=== PATIENT | male | born 1980 | race Caucasian/White ===

== ENCOUNTER 2018-01-15 21:55 | Emergency (ER) | payer SELFPAY ==
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
[2018-01-15 22:09] VITALS: BP 127/77; PULSE 79; RESP 18; TEMP 36.8; O2SAT 98; BMI 26.6
[2018-01-15 23:50] LABS: Add Manual Diff / Slide Review NO; Basophils Percent Auto 0.4 % (0-2); Eosinophils Percent Auto 4.8 % (2-4); Hematocrit 45.7 % (41-53); Hemoglobin 15.7 g/dL (13.5-17.5); Lymphocytes Percent Auto 22.7 % (25-40); Mean Corpuscular HGB Conc 34.3 % (30-36); Mean Corpuscular Hemoglobin 30.2 PG (26-34); Mean Corpuscular Volume 88.2 fL (80-100); Monocytes Percent Auto 9.1 % (3-14); Neutrophils Absolute Auto 4800 /uL (3000-5900); Platelet Count 228 X10^3/uL (150-400); Red Blood Cell Count 5.18 X10^6/uL (4.5-5.9); Red Cell Distribution Width 13.1 % (11.6-14.8); White Blood Cell Count 7.6 X10^3/uL (4.5-11.0)
[2018-01-16 00:02] LABS: Calcium 8.6 mg/dL (8.4-10.2); Estimated Glomerular Filt Rate > 60.0 mL/min (>60); Glucose 99 mg/dL (70-100); HEMOLYSIS 19 (0-50); Potassium 3.7 mmol/L (3.4-5.1); Sodium 138 mmol/L (137-145)
[2018-01-16 00:20] VITALS: BP 126/63; PULSE 65; RESP 16; O2SAT 100
[2018-01-16 02:21] VITALS: BP 120/61; PULSE 66; RESP 16; O2SAT 99
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
--- NOTE | 2018-01-16 03:14 | PC.NURSE ---
ASPEN COLLAR APPLIED TO PT PER PROVIDER. PT TOLERATED COLLAR. PROVIDER REQUESTING PT TO GO HOME ON ASPEN COLLAR UNTIL FOLLOW UP WITH PCP. PT UNDERSTANDS INSTRUCTIONS.
[2018-01-16 03:16] VITALS: BP 116/59; PULSE 86; RESP 20; TEMP 36.9; O2SAT 97
== END 2018-01-16 03:18 | disposition home or self-care (01) ==
PROVIDERS: Emergency Provider Emergency Medicine
DX: M54.2 Cervicalgia (principal); V49.9XXA Car occupant (driver) (passenger) injured in unspecified traffic accident, initial encounter
CPT/HCPCS: 36591; 70450; 71260; 72125; 74177; 80048; 85025; 99283; 99284; Q9967

== ENCOUNTER 2020-03-26 18:57 | Emergency (ER) | payer SELFPAY ==
--- NOTE | 2020-03-26 19:22 | DI.RAD.S_ITS ---
PROCEDURE: XR FINGER LT MIN 2V INDICATIONS: smashed finger with hammer, 3rd digit. TECHNIQUE: AP hand, 2 views of the 3rd digit acquired. COMPARISON: None. FINDINGS: Bones: There is a comminuted fracture of the 3rd distal phalanx primarily involving the tuft. No evidence of articular extension. No dislocations. Soft tissues: There is soft tissue swelling of the 3rd digit distally with a soft tissue laceration dorsally and suspected disruption of the nail bed. No suspicious soft tissue calcifications. IMPRESSION: 1. Comminuted fracture of the 3rd distal phalanx. 2. Suspected disruption of the nail bed suggestive of an open fracture. Dictated by: Adriel Luna M.D. on 03/26/2020 at 19:41 Approved by: Adriel Luna M.D. on 03/26/2020 at 19:43
[2020-03-26 19:24] VITALS: BP 137/70; PULSE 76; RESP 16; TEMP 36.9; O2SAT 99; BMI 24.9
[2020-03-26 20:45] VITALS: BP 146/78; PULSE 81; RESP 16; O2SAT 98
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
[2020-03-26] MEDS: IBUPROFEN 400 MG TABLET PO (21:24)
[2020-03-26] MEDS: OXYCODONE/ACETAMINOPHEN 5/325 TABLET 1 TAB PO (21:24)
[2020-03-26] MEDS: LIDO 1%/SOD BICARB 8.4% (10ML) 10 ML SYRINGE INJ (21:24)
[2020-03-26] MEDS: cephALEXin 250 MG CAPSULE 500 MG PO (21:24)
[2020-03-26 21:55] VITALS: BP 130/73; PULSE 76; RESP 20; O2SAT 98
[2020-03-26] MEDS: BACITRACIN OINT 0.9 GM PCKT 5 APPLIC TOP (22:45)
[2020-03-26] MEDS: OXYCODONE/APAP 5/325 PREPACK 1 BOTTLE MISC (22:56)
== END 2020-03-26 22:50 | disposition home or self-care (01) ==
PROVIDERS: Emergency Provider Emergency Medicine
DX: S62.633B Displaced fracture of distal phalanx of left middle finger, initial encounter for open fracture (principal); W27.8XXA Contact with other nonpowered hand tool, initial encounter
CPT/HCPCS: 12002; 73140; 99283

== ENCOUNTER → 2021-03-10 11:34 | Outpatient (CLI) | payer OTHER, SELFPAY ==
[2021-03-10 20:56] LABS: COVID19 - ORCAS (NP or Nasal) Negative (Negative)
== END ==
PROVIDERS: PCP Family Medicine; Visit Provider Family Medicine
DX: Z20.822 Contact with and (suspected) exposure to COVID-19 (principal)
CPT/HCPCS: U0003